=== PATIENT | male | born 1980 | race Caucasian/White ===

== ENCOUNTER 2016-06-12 12:17 | Emergency (ER) | payer SELFPAY ==
[2016-06-12 12:25] VITALS: TEMP 103; BMI 33.1
[2016-06-12] MEDS ORDERED: ACETAMINOPHEN 325 MG TABLET (FP) PO ONE (12:26)
[2016-06-12] MEDS ORDERED: SODIUM CHLORIDE 1,000 ML IV STA (12:47)
--- NOTE | 2016-06-12 12:54 | PDOC ---
History of Present Illness - General Chief Complaint: SIRS, Suspected/Possible Stated Complaint: CHEST PAIN, SOB Time Seen by Provider: 06/12/16 12:40 History Source: Patient - History of Present Illness Timing/Duration: reports: yesterday Associated Symptoms: reports: cough, fever/chills, muscle aches, shortness of breath. denies: earache, facial pain, headache, nasal congestion, nasal drainage Past History - Past Medical History Allergies/Adverse Reactions: Allergies Allergy/AdvReac Type Severity Reaction Status Date / Time No Known Allergies Allergy Verified 06/12/16 12:25 Home Medications: Ambulatory Orders Hydrocodone/Acetaminophen [[place] 5-325 Tablet] 1 each PO Q4H PRN #10 tablet MDD 8 TAB 05/12/15 Albuterol Sulfate Inhaler - [Ventolin HFA Inhaler -] 1 - 2 inh PO Q4H #1 inhaler 06/12/16 Azithromycin 250 mg PO DAILY #4 tablet 06/12/16 Prednisone [Deltasone -] 40 mg PO DAILY #8 tablet 06/12/16 GI Disorders: Yes (DIVERTICULITIS) - Surgical History Abdominal Surgery: Yes (15 cm colon resection (2013?) s/p diverticulitis) - Psycho/Social/Smoking Cessation Hx Anxiety: No Suicidal Ideation: No Smoking History: Never smoked Have you smoked in the past 12 months: Yes Number of Cigarettes Smoked Daily: 10 Hx Alcohol Use: Yes (SOCIAL) Drug/Substance Use Hx: No Substance Use Type: None Review of Systems - Review of Systems Constitutional: Yes: Fever, Malaise Respiratory: Yes: Cough, Shortness of Breath Cardiac (ROS): Yes: Chest Pain. No: Lightheadedness, Palpitations ABD/GI: No: Diarrhea, Nausea, Vomiting, Abdominal cramping : No: Dysuria, Flank Pain, Hematuria *Physical Exam - Vital Signs Last Vital Signs Temp Pulse Resp BP Pulse Ox 103.0 F H 106 H 20 159/97 97 06/12/16 12:19 06/12/16 12:19 06/12/16 12:19 06/12/16 12:19 06/12/16 12:19 - Physical Exam General Appearance: Yes: Appropriately Dressed. No: Apparent Distress HEENT: positive: EOMI, Normal ENT Inspection, Normal Voice, TMs Normal, Pharynx Normal. negative: Scleral Icterus (R), Scleral Icterus (L) Neck: positive: Supple. negative: Lymphadenopathy (R), Lymphadenopathy (L) Respiratory/Chest: positive: Wheezing (to L base). negative: Respiratory Distress Cardiovascular: positive: S1, S2, Tachycardia Gastrointestinal/Abdominal: positive: Soft. negative: Tender, Distended, Guarding, Rebound Musculoskeletal: negative: CVA Tenderness Extremity: positive: Normal Inspection Integumentary: positive: Dry, Warm Neurologic: positive: Fully Oriented, Alert, Normal Mood/Affect Heart Score/ECG Review - ECG Intrepretation Comment:: 06/12/16 13:24 Sinus tachycardia ED Treatment Course - LABORATORY CBC & Chemistry Diagram: 06/12/16 13:05 06/12/16 13:05 - RADIOLOGY Radiology Studies Ordered: Category Date Time Status CHEST PA & LAT [RAD] Stat Radiology 06/12/16 12:48 Ordered - Medications Given in the ED: ED Medications Discontinued Medications Generic Name Dose Route Start Last Admin Trade Name Freq PRN Reason Stop Dose Admin Acetaminophen 650 mg 06/12/16 12:26 06/12/16 12:26 Tylenol - PO 06/12/16 12:27 650 mg NOW ONE Administration Medical Decision Making - Medical Decision Making 06/12/16 12:49 35 yo male, h/o childhood asthma, s/p surgery for diverticulitis several years ago, p/w malaise w/ body aches, sob, chest tightness, dry cough, sore throat and fever since yesterday. Reports no abd pain, change in BM or dysuria. No sick contacts or recent travel. Pt triggered sepsis at triage based on fever of 103 and tachycardia See exam Sepsis ? 2/2 viral, i.e flu, vs PNA (given CP/SOB and localized wheezing on exam) vs strep, doubt recurrent diverticulitis as no abd pain, change in BM, n/v -IVF -antipyretic -labs -bhatia-cx -influenza -strep -reassess 06/12/16 15:10 06/12/16 15 Labs and CXR negative. Pt c/o wheezing now. Will give duo nebs and pred given h/ o childhood asthma. Will consider discharging w/ zpack 06/12/16 15:52 06/12/16 16:12 Pt reports feeling better w/ no wheezing on re-eval. Able to ambulate without sob. Vitals improved. Stable for discharge w/ pred taper and zpack. Pt to f/u with his pmd 06/12/16 16:23 *DC/Admit/Observation/Transfer Diagnosis at time of Disposition: Viral syndrome, Cough, Wheezing - Discharge Dispostion Disposition: HOME Condition at time of disposition: Improved - Prescriptions Prescriptions: Azithromycin 250 mg PO DAILY #4 tablet Prednisone [Deltasone -] 40 mg PO DAILY #8 tablet Albuterol Sulfate Inhaler - [Ventolin HFA Inhaler -] 1 - 2 inh PO Q4H #1 inhaler - Patient Instructions Printed Discharge Instructions: Acute Bronchitis, DI for Viral Syndrome Additional Instructions: Maintain adequate hydration and take medications as prescribed. Follow-up with your PMD
[2016-06-12] MEDS ORDERED: KETOROLAC TROMETHAMINE 30 MG/1 ML VIAL ONE (13:22)
[2016-06-12 13:24] LABS: BASOPHIL 0.5 % (0-2.0); EOSINOPHIL 1.9 % (0-4.5); MCH 28.9 pg (25.7-33.7); MCHC 33.8 g/dl (32.0-35.9); MEAN CELL VOLUME 85.4 fl (80-96); NEUTROPHILS 72.9 % (42.8-82.8); PLATELET COUNT 192 K/MM3 (134-434); RDW 12.9 % (11.9-15.9); WHITE BLOOD COUNT 7.3 K/mm3 (4.0-10.0)
[2016-06-12 13:26] LABS: VENOUS PH 7.37 (7.32-7.42)
[2016-06-12 13:27] LABS: VENOUS BLOOD GAS HCO3 28.5 meq/L (19-25)
[2016-06-12 13:38] LABS: INR 0.96 (0.82-1.09); PROTHROMBIN TIME (PATIENT) 10.6 SEC (9.98-11.88)
[2016-06-12 13:40] LABS: ACTIVATED PTT 30.5 SECONDS (26.9-34.4)
[2016-06-12 13:53] LABS: ALBUMIN 3.9 g/dl (3.4-5.0); ANION GAP 10 (8-16); BILIRUBIN,TOTAL 0.6 mg/dL (0.2-1.0); CALCIUM 8.3 mg/dL (8.5-10.1); CO2 29 mmol/L (21-32); COCKROFT - GAULT 121.94; CREATININE 1.1 mg/dL (0.7-1.3); GLUCOSE,RANDOM 99 mg/dL (74-106); SGOT/AST 22 U/L (15-37); SGPT/ALT 46 U/L (12-78); TOT PROT 7.4 g/dl (6.4-8.2)
[2016-06-12] MEDS ORDERED: KETOROLAC TROMETHAMINE 30 MG/1 ML VIAL IVPUSH ONE (13:53)
[2016-06-12 13:55] LABS: ALK PHOS 100 U/L (45-117); TROPONIN I 0.03 ng/ml (0.00-0.05)
--- NOTE | 2016-06-12 14:06 | EKG ---
Test Reason : Blood Pressure : / mmHG Vent. Rate : 105 BPM Atrial Rate : 105 BPM P-R Int : 126 ms QRS Dur : 094 ms QT Int : 336 ms P-R-T Axes : 046 062 003 degrees QTc Int : 444 ms SINUS TACHYCARDIA NONSPECIFIC T WAVE ABNORMALITY ABNORMAL ECG NO PREVIOUS ECGS AVAILABLE CLINICAL CORRELATION IS RECOMMENDED Confirmed by ИРИНА IRVIN, HILARIA ([id number] on 06/12/2016 2:06:06 PM Referred By: Confirmed By:HILARIA GIFFORD MD
[2016-06-12] MEDS ORDERED: ALBUTEROL SO4 2.5/IPRATROPIUM 0.5 INH SOL 3 ML VIAL.NEB. NEB ONE ×2 (15:26→15:31)
[2016-06-12 15:46] LABS: URINE APPEARANCE CLEAR; URINE BILIRUBIN NEGATIVE (NEGATIVE); URINE COLOR STRAW; URINE GLUCOSE (UA) NEGATIVE (NEGATIVE); URINE KETONE NEGATIVE (NEGATIVE); URINE LEUK ESTERASE NEGATIVE (NEGATIVE); URINE NITRITE NEGATIVE (NEGATIVE); URINE PROTEIN NEGATIVE (NEGATIVE); URINE UROBILINOGEN NEGATIVE E.U./dl (0.2-1.0)
[2016-06-12] MEDS ORDERED: AZITHROMYCIN 250 MG TABLET (FP) PO ONE (15:47)
[2016-06-12] MEDS ORDERED: predniSONE 20 MG TABLET (UD) PO ONE (15:47)
[2016-06-12 15:51] LABS: URINE BLOOD 1+ (NEGATIVE); URINE MUCUS RARE; URINE RBC 1 /hpf (0-3); URINE WBC <1 /hpf (3-5)
[2016-06-12] MEDS ORDERED: predniSONE 20 MG TABLET (UD) ONE (16:07)
[2016-06-12] MEDS ORDERED: AZITHROMYCIN 250 MG TABLET (FP) ONE (16:08)
[2016-06-12 16:24] VITALS: BP 142/88; PULSE 85
== END 2016-06-12 16:35 | disposition home or self-care (01) ==
LOC: JER 12:17
PROC: 3E0F7GC Introduction of Other Therapeutic Substance into Respiratory Tract, Via Natural or Artificial Opening (ICD-10-PCS; principal; 2016-06-12)
PROC: 3E0333Z Introduction of Anti-inflammatory into Peripheral Vein, Percutaneous Approach (ICD-10-PCS; 2016-06-12)
PROC: 3E0337Z Introduction of Electrolytic and Water Balance Substance into Peripheral Vein, Percutaneous Approach (ICD-10-PCS; 2016-06-12)
DX: B34.9 Viral infection, unspecified (principal); R05 Cough; R06.2 Wheezing; Z87.891 Personal history of nicotine dependence; K57.92 Diverticulitis of intestine, part unspecified, without perforation or abscess without bleeding
CPT/HCPCS: 36415; 71020-TC; 80053; 81003; 81015; 82550; 82553; 82803; 83605; 84484; 85025; 85610; 85730; 86850; 86900; 86901; 87040; 87070; 87086; 87430; 87804; 93005; 93010; 99285-25